=== PATIENT | female | born 1985 | race Two or more races ===

== ENCOUNTER 2018-03-02 19:29 | Emergency (ER) | payer SELFPAY ==
[~2018-03-02] VITALS: Ht 170.2 cm; Wt 53.5 kg
--- NOTE | 2018-03-02 19:36 | NUR ---
PT BIB [id number] WITH C/O LEFT KNEE PAIN, LEFT HIP PAIN, LEFT FLANK PAIN, LEFT UPPER EXTREMITY PAIN S/P FALL 30 MIN [employer]. PT STATES SHE & HER SIGNIFICANT OTHER LOST BALANCE AND FELL INTO AN EMPTY POOL THAT WAS 3 FEET DEEP AND LANDED ON HER LEFT SIDE. PT DENIES HITTING HER HEAD/LOC. PT AAOX4. ABRASIONS NOTED ON RIGHT KNEE, LEFT ARM, AND RIGHT FINGERS. VSS.
--- NOTE | 2018-03-02 19:37 | NUR ---
DR. ENRIQUE DOUGLAS MD AT BEDSIDE FOR MSE.
[2018-03-02] MEDS ORDERED: MORPHINE SULFATE 2 MG/1 ML DISP.SYRIN IV ONE (19:45)
[2018-03-02] MEDS ORDERED: IV NORMAL SALINE 1000 ML BAG IV ONE (19:45)
[2018-03-02] MEDS ORDERED: NEOMY/BACITRA/POLYMYXIN B OINT UD PACKET TP ONE ×2 (19:45→19:57)
[2018-03-02] MEDS ORDERED: ONDANSETRON 4 MG/2 ML VIAL IV ONE ×2 (19:45→22:00)
[2018-03-02 19:57] LABS: BASOPHILS # (AUTO) 0.1 K/uL (0.0-8.0); BASOPHILS % (AUTO) 0.8 % (0.0-2.0); EOSINOPHILS # (AUTO) 0.1 K/uL (0.0-0.7); EOSINOPHILS % (AUTO) 1.2 % (0.0-7.0); HEMATOCRIT 36.7 % (31.2-41.9); HEMOGLOBIN 12.4 g/dL (10.9-14.3); LYMPHOCYTES # (AUTO) 3.5 K/uL (20.0-40.0); LYMPHOCYTES % (AUTO) 45.3 % (20.5-51.5); MEAN CORPUSCULAR HEMOGLOBIN 29.6 uug (24.7-32.8); MEAN CORPUSCULAR HGB CONC 34 g/dL (32.3-35.6); MEAN CORPUSCULAR VOLUME 87.5 fL (75.5-95.3); MONOCYTES # (AUTO) 0.7 K/uL (2.0-10.0); MONOCYTES % (AUTO) 9.3 % (0.0-11.0); NEUTROPHILS # (AUTO) 3.4 K/uL (1.8-8.9); NEUTROPHILS % (AUTO) 43.4 % (38.5-71.5); PLATELET COUNT (AUTO) 265 K/uL (179-408); WHITE BLOOD COUNT (AUTO) 7.8 K/uL (3.8-11.8)
[2018-03-02] MEDS ORDERED: MORPHINE SULFATE 4 MG/1 ML DISP.SYRIN ONE ×3 (19:58→21:49)
[2018-03-02] MEDS ORDERED: ONDANSETRON 4 MG/2 ML VIAL ONE ×2 (19:58→21:49)
[2018-03-02 20:08] LABS: CREATININE 0.7 mg/dL (0.6-1.3); POTASSIUM 3.7 mmol/L (3.5-5.1)
[2018-03-02] MEDS ORDERED: NORMAL SALINE FLUSH 10 ML DISP.SYRIN ONE (20:27)
[2018-03-02] MEDS ORDERED: IOHEXOL 300MG/ML 100 ML INFUS..BTL ONE (20:27)
[2018-03-02] MEDS ORDERED: IV NORMAL SALINE 100 ML ONE (20:27)
[2018-03-02] MEDS ORDERED: SWABABLE VALVE TRANSFER SET EA MC ONE (20:27)
[2018-03-02] MEDS ORDERED: MORPHINE SULFATE 4 MG/1 ML DISP.SYRIN IV ONE ×2 (21:00→22:00)
[2018-03-02] MEDS ORDERED: IBUPROFEN 800 MG TABLET ONE (21:50)
[2018-03-02] MEDS ORDERED: IBUPROFEN 800 MG TABLET PO ONE (22:00)
--- NOTE | 2018-03-02 22:00 | NUR ---
IV removed. Catheter intact and site benign. Pressure and 4x4 gauze applied to site. No bleeding noted.
[2018-03-02] MEDS ORDERED: LORAZEPAM 1 MG TABLET ONE (22:06)
--- NOTE | 2018-03-02 22:09 | NUR ---
DPatient discharged to home in stable conditon. Written and verbal after care instructions given. Patient verbalizes understanding of instructions. Pt left ER accompanied by two friends. All belongings with pt. VSS. No acute distress noted.
[2018-03-02 22:11] VITALS: BP 126/88
[2018-03-02] MEDS ORDERED: LORAZEPAM 0.5 MG TABLET PO ONE (22:15)
== END 2018-03-02 22:15 | disposition home or self-care (01) ==
LOC: ER 19:31 → EDBD 19:31 → ER 22:15
DX: S39.92XA Unspecified injury of lower back, initial encounter (principal); S49.92XA Unspecified injury of left shoulder and upper arm, initial encounter; S29.9XXA Unspecified injury of thorax, initial encounter; W17.3XXA Fall into empty swimming pool, initial encounter; Y93.89 Activity, other specified; Y92.89 Other specified places as the place of occurrence of the external cause; Y99.8 Other external cause status
CPT/HCPCS: 36415; 71260; 73030; 84703; 85025; 85730; 86850; 86900; 86901; A4217; A4663; J2270; J2405; J3490; J7030; Q9967

== ENCOUNTER 2018-03-16 16:19 | Emergency (ER) | payer SELFPAY ==
[~2018-03-16] VITALS: Ht 170.2 cm; Wt 53.5 kg
--- NOTE | 2018-03-16 16:35 | NUR ---
Pt was triaged and placed back in ER waiting room. There are no ER beds available at this time.
--- NOTE | 2018-03-16 18:56 | NUR ---
Pt ambulatory to room 2b.
[2018-03-16 19:22] LABS: *URINE HCG, QUAL NEGATIVE (NEGATIVE)
[2018-03-16] MEDS ORDERED: OXYCODONE/APAP 5-325 MG TABLET PO ONE (19:30)
[2018-03-16] MEDS ORDERED: OXYCODONE/APAP 5-325 MG TABLET ONE (19:53)
--- NOTE | 2018-03-16 20:47 | NUR ---
Patient discharged to home in stable conditon. Written and verbal after care instructions given. Patient verbalizes understanding of instructions.
== END 2018-03-16 20:49 | disposition home or self-care (01) ==
LOC: ER 16:23
DX: S42.92XA Fracture of left shoulder girdle, part unspecified, initial encounter for closed fracture (principal); M25.522 Pain in left elbow; R07.89 Other chest pain; W17.89XA Other fall from one level to another, initial encounter; Y93.89 Activity, other specified; Y92.89 Other specified places as the place of occurrence of the external cause; Y99.8 Other external cause status
CPT/HCPCS: 71045; 73030; 84703; A4663